=== PATIENT | female | born 1990 | race Caucasian/White ===

== ENCOUNTER 2017-04-25 21:43 | Emergency (ER) | payer OTHER ==
[~2017-04-25] VITALS: Ht 165.1 cm; Wt 79.4 kg
[2017-04-25 21:53] VITALS: BP 129/84
[2017-04-25] MEDS ORDERED: LORazepam 1 MG TAB PO ONE (22:20)
[2017-04-25 22:53] LABS: ANION GAP 12.9 (8-16); CREATININE 1.1 mg/dL (0.6-1.3); POTASSIUM 3.9 mmol/L (3.5-5.1)
[2017-04-25 23:20] VITALS: BP 122/79
== END 2017-04-25 23:20 | disposition home or self-care (01) ==
LOC: MED 21:43
DX: F41.9 Anxiety disorder, unspecified (principal); R55 Syncope and collapse
CPT/HCPCS: 36415; 71010; 80048; 84703; 93005; 99285; Q0092

== ENCOUNTER 2018-03-26 13:13 | Emergency (ER) | payer OTHER ==
[~2018-03-26] VITALS: Ht 162.6 cm; Wt 81.6 kg
[2018-03-26 13:21] VITALS: BP 127/86
--- NOTE | 2018-03-26 13:22 | NUR ---
PT AMBULATED TO BED 3 WITH STEADY GAIT
--- NOTE | 2018-03-26 13:25 | NUR ---
27 YO F TO ER W/C/O DIZZINESS X4 DAYS WITH LIGHT LEADEDNESS. PT STATED THAT IT IS INTERMITTENT SYMPTOMS WITH SUDDEN ONSET. PT DENIES ANY BLURRED OR DOUBLE VISION. PT STATES NAUSEA W/O VOMITING. BS ACTIVE X4, ABD SOFT NON TENDER. LS CLEAR THOUGHOUT. ER MD MADE AWARE. WILL CONTINUE TO MONITOR.
--- NOTE | 2018-03-26 13:30 | NUR ---
Patient being evaluated by physician at bedside.
[2018-03-26] MEDS ORDERED: LACTULOSE 20 GM/30 ML UDC PO ONE (13:35)
[2018-03-26] MEDS ORDERED: MECLIZINE 25 MG TAB PO ONE (13:45)
[2018-03-26 14:05] LABS: APPEARANCE,URINE SL CLOUDY (CLEAR); BILIRUBIN,URINE NEGATIVE (NEGATIVE); BLOOD, URINE 3+ (NEGATIVE); COLOR,URINE RED (YELLOW); LEUKOCYTE ESTERASE ,URINE TRACE (NEGATIVE); NITRITE, URINE NEGATIVE (NEGATIVE); UGLUCOSE NEGATIVE (NEGATIVE)
[2018-03-26 14:21] LABS: RBC,URINE TOO NUMEROUS TO COUN /HPF (0-5); WBC,URINE 6-15 (FEW) /HPF (0-5)
[2018-03-26 14:22] LABS: BARBITURATE, URINE NEG. ng/ml (NEG <=200); BENZODIAZEPINE, URINE NEG. ng/mL (NEG <=200); CANNABINOID, URINE NEG. ng/mL (NEG <=50); COCAINE, URINE NEG. ng/mL (NEG <=300); OPIATE, URINE NEG. ng/mL (NEG <=2000); PHENCYCLIDINE SCREEN,URINE NEG. ng/mL (NEG <=25)
[2018-03-26 14:43] VITALS: BP 127/86
--- NOTE | 2018-03-26 14:44 | NUR ---
Patient discharged with v/s stable. Written and verbal after care instructions given and explained. Patient alert, oriented and verbalized understanding of instructions. Ambulatory with steady gait. All questions addressed prior to discharge. ID band removed. Patient advised to follow up with PMD. Rx of ANTIVERT, COLACE given. Patient educated on indication of medication including possible reaction and side effects. Opportunity to ask questions provided and answered.
== END 2018-03-26 14:44 | disposition home or self-care (01) ==
LOC: MED 13:13
DX: R42 Dizziness and giddiness (principal); R51 Headache; F41.9 Anxiety disorder, unspecified
CPT/HCPCS: 80305; 81001; 81025; 87086; 99284; J8597

== ENCOUNTER 2018-10-25 20:44 | Emergency (ER) | payer OTHER ==
[~2018-10-25] VITALS: Ht 160 cm; Wt 95.3 kg
[2018-10-25 21:10] VITALS: BP 135/82
--- NOTE | 2018-10-25 21:13 | NUR ---
PT AMBULATED TO LOBBY WITH VSS.
--- NOTE | 2018-10-25 22:06 | NUR ---
PT AMBULATED TO ER BED 12
[2018-10-25] MEDS ORDERED: ONDANSETRON 4 MG ODT PO ONE (22:45)
[2018-10-25] MEDS ORDERED: IBUPROFEN 600 MG TAB PO ONE (22:45)
--- NOTE | 2018-10-25 23:08 | NUR ---
SUPRAPUBIC ABD PAIN WITH URINARY FREQUENCY X1 DAY. PT ALSO C/O DIZZINESS. DENIES DYSURIA. DENIES N/V. PT REPORTS TAKING AT HOME MOTRIN WITH LITTLE TO NO RELIEF. PT DENIES PAIN UPON PALPATION, ABD IS SOFT NONTENDER. PT PLACED INTO BED, PENDING MD ALEXANDRE.
[2018-10-26 00:04] LABS: BASOPHILS % (AUTO) 0.3 % (0.0-2.0); EOSINOPHILS % (AUTO) 0.3 % (0.0-4.0); HEMATOCRIT 42.2 % (36-48); HEMOGLOBIN 13.8 g/dL (12.0-16.0); LYMPHOCYTES # (AUTO) 3.2 K/uL (2.5-16.5); LYMPHOCYTES % (AUTO) 25.7 % (20.5-51.1); MEAN CORPUSCULAR HEMOGLOBIN 27 pg (27-31); MEAN CORPUSCULAR HGB CONC 33 g/dL (33-37); MEAN CORPUSCULAR VOLUME 81.1 fL (80-94); MONOCYTES # (AUTO) 0.7 K/uL (0.8-1.0); MONOCYTES % (AUTO) 5.4 % (1.7-9.3); NEUTROPHILS # (AUTO) 8.6 K/uL (1.8-7.7); NEUTROPHILS % (AUTO) 68.3 % (42.2-75.2); PLATELET COUNT (AUTO) 354 K/uL (140-450); RED BLOOD CELL COUNT(AUTO) 5.21 MIL/uL (4.20-5.40); RED CELL DISTRIBUTION WIDTH 13.2 % (11.6-13.7); WHITE BLOOD COUNT (AUTO) 12.6 K/uL (4.8-10.8)
[2018-10-26 00:12] LABS: ANION GAP 11.3 (8-16); CARBON DIOXIDE 29.3 mmol/L (21-32); CREATININE 0.7 mg/dL (0.6-1.3); POTASSIUM 3.6 mmol/L (3.5-5.1)
[2018-10-26 00:27] LABS: FREE T4 (FREE THYROXINE) 1.11 ng/dL (0.76-1.46); THYROID STIMULATING HORMONE 2.95 uIU/mL (0.34-3.74); TOTAL BILIRUBIN 0.4 mg/dL (0.0-1.0)
--- NOTE | 2018-10-26 01:38 | NUR ---
PT RESTING IN BED, VSS.
[2018-10-26 02:20] VITALS: BP 128/79
--- NOTE | 2018-10-26 02:21 | NUR ---
Patient discharged with v/s stable. Written and verbal after care instructions given and explained. Patient verbalized understanding. Ambulatory with steady gait. All questions addressed prior to discharge. Advised to follow up with PMD.
[2018-10-26 02:54] LABS: APPEARANCE,URINE HAZY (CLEAR); COLOR,URINE YELLOW (YELLOW); PH,URINE 6.5 (5.0-9.0)
[2018-10-26 02:55] LABS: BILIRUBIN,URINE NEGATIVE (NEGATIVE); BLOOD, URINE 4+ (NEGATIVE); LEUKOCYTE ESTERASE ,URINE NEGATIVE (NEGATIVE); NITRITE, URINE NEGATIVE (NEGATIVE); UGLUCOSE NEGATIVE (NEGATIVE)
[2018-10-26 02:56] LABS: RBC,URINE 11-20 (MOD) /HPF (0-5)
== END 2018-10-26 02:21 | disposition home or self-care (01) ==
LOC: MED 20:44
DX: R53.83 Other fatigue (principal); R51 Headache; F41.9 Anxiety disorder, unspecified
CPT/HCPCS: 36415; 80053; 81001; 81025; 84439; 84443; 85025; 87086; 99283; Q0162

== ENCOUNTER 2021-08-14 13:41 | Emergency (ER) | payer OTHER ==
[~2021-08-14] VITALS: Ht 160 cm; Wt 105.7 kg
[2021-08-14 14:06] VITALS: BP 140/96
--- NOTE | 2021-08-14 15:12 | NUR ---
pt left without discharge paperwork
[2021-08-14 15:13] VITALS: BP 140/96
== END 2021-08-14 15:13 | disposition home or self-care (01) ==
LOC: MED 13:41
DX: R21 Rash and other nonspecific skin eruption (principal); T46.7X5A Adverse effect of peripheral vasodilators, initial encounter; Y92.89 Other specified places as the place of occurrence of the external cause
CPT/HCPCS: 99281